=== PATIENT | female | born 2000 | race Caucasian/White ===

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

== ENCOUNTER → 2018-01-07 09:04 | Outpatient (CLI) | payer MEDICAID, SELFPAY ==
[2018-01-07 13:11] LABS: Group B Strep DNA By PCR Negative (Negative); Internal Control PASS; Probe Check PASS; Specimen Processing Control PASS
== END ==
PROVIDERS: Visit Provider Obstetrics & Gynecology
DX: Z36.85 Encounter for antenatal screening for Streptococcus B (principal)
CPT/HCPCS: 87081; 87653

== ENCOUNTER 2018-02-10 16:40 | Inpatient (IN) | payer MEDICAID, SELFPAY ==
--- NOTE | 2018-02-10 16:40 | DT_ITS ---
This patient was seen during an EMR downtime February 08, 2018 - February 15, 2018. This patient may have a combination of paper and electronic documentation or all paper documentation. All documentation is viewable within the e-chart portion of [employer] for each patient visit.
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
[2018-02-13 09:03] LABS: Hematocrit 38.5 % (37-47); Hemoglobin 12.7 g/dl (12.0-15.0); Mean Corpuscular Hgb 27.6 pg (27.0-32.0); Mean Corpuscular Volume 83.7 fL (81-99); Mean Platelet Vol. 11.5 fl (6.2-12.0); Platelet Count 218 K/mm3 (150-450); RBC Distribution Width CV 15.5 % (11.6-14.6); RBC Distribution Width SD 46.7 fl (35.1-43.9); Scan Indicated on CBC? Y/N NO; White Blood Count 11.4 K/mm3 (4.4-11.0)
[2018-02-15 16:12] LABS: Hemoglobin 9.1 g/dl (12.0-15.0); Mean Corp Hgb Conc 32.5 g/gl (32-36); Mean Corpuscular Hgb 27.8 pg (27.0-32.0); Mean Corpuscular Volume 85.6 fL (81-99); Mean Platelet Vol. 11.4 fl (6.2-12.0); Platelet Count 133 K/mm3 (150-450); RBC Distribution Width CV 15.5 % (11.6-14.6); RBC Distribution Width SD 46.8 fl (35.1-43.9); Red Blood Count 3.27 M/mm3 (4.2-5.4); Scan Indicated on CBC? Y/N NO
--- NOTE | 2018-02-17 15:32 | CASEMGMT ---
Social Work Note Labor and Delivery Unit [employer] referral submitted vie secure web based referral form through the [employer] [facility] [employer] [facility] website. No other services requested or indicated. -JOSÉ MANUEL Webster, RECOVERY OPERATOR HELPER
== END 2018-02-13 13:30 | disposition home or self-care (01) | DRG 373 ==
LOC: WPOUT 17:14 → WP 17:15
PROVIDERS: Admitting Provider Obstetrics & Gynecology; Visit Provider Obstetrics & Gynecology
DX: O48.0 Post-term pregnancy (principal); Z3A.40 40 weeks gestation of pregnancy; O77.0 Labor and delivery complicated by meconium in amniotic fluid; O71.82 Other specified trauma to perineum and vulva; O71.4 Obstetric high vaginal laceration alone; Z37.0 Single live birth
CPT/HCPCS: 59025; 59050; 85027; 86850; 86900; 99218; J7120; A4216; G0378

== ENCOUNTER → 2018-06-09 16:34 | Outpatient (CLI) | payer MEDICAID, SELFPAY ==
[2018-06-09 17:47] LABS: Absolute Lymphocyte Count 2.33 X10^3/ul (0.83-4.51); Absolute Neutrophil Count 4.7 X10^3/uL (2.0-7.7); Basophil# 0.04 X10^3/uL; Basophil% 0.5 % (0-1); Eosinophil# 0.21 X10^3/uL; Eosinophils% 2.7 % (0-5); Hemoglobin 12.2 g/dl (12.0-15.0); Lymphocyte # 2.33 X10^3/ul (4.0); Mean Corp Hgb Conc 32.1 g/gl (32-36); Mean Corpuscular Hgb 26.8 pg (27.0-32.0); Mean Corpuscular Volume 83.3 fL (81-99); Mean Platelet Vol. 11.7 fl (6.2-12.0); Monocyte# 0.49 X10^3/uL; Monocyte% 6.3 % (0-10); Neutrophil # 4.68 X10^3/uL (2.7-7.7); Neutrophil % 60.2 % (47-70); Platelet Count 260 K/mm3 (150-450); RBC Distribution Width CV 13.7 % (11.6-14.6); RBC Distribution Width SD 40.7 fl (35.1-43.9); Red Blood Count 4.56 M/mm3 (4.2-5.4); White Blood Count 7.8 K/mm3 (4.4-11.0)
[2018-06-09 17:48] LABS: POSITIVE COUNT NO; POSITIVE DIFFERENTIAL NO; POSITIVE MORPHOLOGY NO
[2018-06-09 17:57] LABS: Vitamin B12 418 pg/mL (211-911)
[2018-06-09 18:06] LABS: Ferritin 7 ng/mL (8-252); Iron 39 ug/dL (50-170); Iron Binding Capacity,Total 490 ug/dL (250-450)
== END ==
PROVIDERS: Family Provider Family Medicine; PCP Family Medicine; Visit Provider Family Medicine
DX: D64.9 Anemia, unspecified (principal)
CPT/HCPCS: 36415; 82607; 82728; 82746; 83540; 83550; 85025

== ENCOUNTER → 2018-07-12 10:30 | Outpatient (CLI) | payer MEDICAID, SELFPAY ==
[2018-07-12 15:29] LABS: Chlamydia Trachomatis by PCR Negative (Negative); Neisserai gonorrhoeae by PCR Negative (Negative); Probe Check PASS; Sample Adequacy Control PASS; Specimen Processing Control PASS
== END ==
PROVIDERS: Visit Provider Obstetrics & Gynecology
DX: Z11.3 Encounter for screening for infections with a predominantly sexual mode of transmission (principal)
CPT/HCPCS: 87491; 87591

== ENCOUNTER → 2018-09-08 16:25 | Outpatient (CLI) | payer MEDICAID, SELFPAY ==
[2018-09-08 18:42] LABS: Ferritin 20 ng/mL (8-252); Iron 42 ug/dL (50-170); Iron Binding Capacity,Total 486 ug/dL (250-450)
[2018-09-08 19:02] LABS: Basophil% 0.3 % (0-1); Eosinophils% 2.6 % (0-5); Hematocrit 36.7 % (37-47); Hemoglobin 12.2 g/dl (12.0-15.0); Lymphocyte # 2.33 X10^3/ul (4.0); Lymphocyte % 30.5 % (19-41); Mean Corp Hgb Conc 33.2 g/gl (32-36); Mean Corpuscular Hgb 27.3 pg (27.0-32.0); Mean Corpuscular Volume 82.1 fL (81-99); Mean Platelet Vol. 12.3 fl (6.2-12.0); Monocyte% 6.6 % (0-10); Neutrophil # 4.56 X10^3/uL (2.7-7.7); Neutrophil % 59.7 % (47-70); POSITIVE COUNT NO; POSITIVE DIFFERENTIAL NO; POSITIVE MORPHOLOGY NO; Platelet Count 242 K/mm3 (150-450); RBC Distribution Width SD 44.7 fl (35.1-43.9); Red Blood Count 4.47 M/mm3 (4.2-5.4); White Blood Count 7.6 K/mm3 (4.4-11.0)
[2018-09-08 19:03] LABS: Absolute Lymphocyte Count 2.33 X10^3/ul (0.83-4.51); Absolute Neutrophil Count 4.6 X10^3/uL (2.0-7.7); Basophil# 0.02 X10^3/uL
== END ==
PROVIDERS: Family Provider Family Medicine; PCP Family Medicine; Visit Provider Family Medicine
DX: E61.1 Iron deficiency (principal)
CPT/HCPCS: 36415; 82728; 83540; 83550; 85025

== ENCOUNTER → 2020-07-06 | Outpatient (CLI) | payer MEDICAID, SELFPAY | END | disposition home or self-care (01) | LOC: LABSPEC 17:50 | PROVIDERS: PCP Family Medicine; Referring Provider Advanced Practice Midwife; Visit Provider Advanced Practice Midwife | DX: Z20.828 Contact with and (suspected) exposure to other viral communicable diseases (principal) | CPT/HCPCS: 87635; C9803; U0003 ==

== ENCOUNTER 2020-07-12 15:58 | Inpatient (IN) | payer MEDICAID, SELFPAY ==
[2020-07-12] VITALS (20 sets, daily range): BP systolic 80–126; BP diastolic 52–78; PULSE 64–91; TEMP 36.9–37.4; O2SAT 83–100; BMI 22.2
[2020-07-12] MEDS: Lactated Ringers 1,000 ML 50 ML IV (16:25)
[2020-07-12 16:43] LABS: Absolute Lymphocyte Count 1.71 X10^3/uL (0.83-4.51); Basophil# 0.03 X10^3/uL; Basophil% 0.4 % (0-1); Eosinophil# 0.12 X10^3/uL; Eosinophils% 1.4 % (0-5); Hematocrit 34.3 % (37-47); Hemoglobin 11.1 g/dL (12.0-15.0); Lymphocyte # 1.71 X10^3/ul (4.0); Mean Corp Hgb Conc 32.4 g/dL (32-36); Mean Corpuscular Hgb 27.6 pg (27.0-32.0); Mean Corpuscular Volume 85.3 fL (81-99); Mean Platelet Vol. 10.8 fl (6.2-12.0); Monocyte# 0.59 X10^3/uL; Monocyte% 6.9 % (0-10); NRBC Flagged by Analyzer 0 % (0-5); Neutrophil # 6.04 X10^3/uL (2.7-7.7); Neutrophil % 70.4 % (47-70); Platelet Count 190 K/mm3 (150-450); RBC Distribution Width CV 14.1 % (11.6-14.6); RBC Distribution Width SD 44.1 fl (35.1-43.9); Red Blood Count 4.02 M/mm3 (4.2-5.4); White Blood Count 8.6 K/mm3 (4.4-11.0)
[2020-07-12] MEDS: Oxytocin 30 units/NS 500 ml 30 UNITS/500 ML IV.SOLN IV (18:05)
[2020-07-12] MEDS: 0.9% Normal Saline Single 100 ML IV.SOLN. IY (18:32)
--- NOTE | 2020-07-12 19:18 | PCM.HP.OB ---
- Problem List (1) 39 weeks gestation of Status: Acute (2) History of marijuana use Status: Acute History Date of Admission: 07/12/20 Final GIANA: 07/18/20 Gestational age: 39 Weeks and 1 Days History of this : This is a 19 year-old, G [2], P [1], at 39.1 weeks gestational age here for elective induction. Patient's father in law has cancer and is receiving chemotherapy. They watch patient's 2 year old and needed a scheduled date for delivery. has been uncomplicated. Patient has a history of marijuana use early in the . Allergies codeine Allergy (Verified 07/12/20 16:24) Unknown Home Medications: Home Medications Vits [Prenatabs FA] 1 tab PO DAILY 07/12/20 Smoking Status: Never smoker Substance Use Type: Marijuana Number of Fetus(es): 1 NST - FHR Rate Baby A Baseline: 150 Variability:: Moderate Accelerations:: 15 x 15 Decelerations:: None NST Reactive:: Yes FHR Category:: Category I Uterine Activity:: TOCO reading 1-3 minutes. Palpate mild and relaxed in between History Past Pregnancies: Past Pregnancies Delivery Date Name GA/ Weeks Outcome Route Wt Sex Labor Length Anesthesia Delivery Location Provider FOB Labs: A+ Rubella- immune HB -negative HC - negative RPR- NR HIV- NR GC/CH- neg GBS negative COVID- 19- negative LARC- patient desires Nexplanon prior to discharge home Expected Infant Delivery Method: Spontaneous Vaginal Review of Systems Constitutional: Denies: Chills, Fever Cardiovascular: Denies: Chest Pain Respiratory: Denies: Cough, Shortness of Breath Gastrointestinal: Denies: Abdominal Pain Genitourinary: Denies: Dysuria Neurological: Denies: Headaches Physical Exam Vitals: Vital Signs Temp Pulse BP Pulse Ox 98.5 F 76 111/69 99 07/12/20 19:13 07/12/20 19:13 07/12/20 19:13 07/12/20 16:36 General: Alert, Oriented x3 Cardiovascular: Regular rate Lungs: Normal air movement Abdomen: Soft, Non Tender, Gravid Neurological: Cranial nerves II-XII grossly intact SR COMMUNITY MANAGER: Normal external genitalia Estimated gestational size: Appropriate for gestational size Cervix Dilation (cm): 1.5 Station: -1 Effacement (%): 60 Assessment/Plan All Active Problems 39 weeks gestation of (Acute) History of marijuana use (Acute) This is a 19 year-old, G [2], P [1], at 39.1 weeks gestational age for induction of labor for maternal reasons. A/P Category 1 tracing Admit to labor and delivery Routine labs IV fluids per protocol CE- 1.5/60/-1 Cuenca bulb catheter placed and filled with 30 cc of NS Start Pitocin IV and titrate per orders Pain medications when indicated Anticipate Dr. Foy notified of admission and is collaborating physician
[2020-07-12 21:05] LABS: Amphetamine Urine VISTA NEGATIVE (<1000 ng/mL); Barbiturate Urine VISTA NEGATIVE (< 200 ng/mL); Benzodiazepine Urine VISTA NEGATIVE (< 200 ng/mL); Cocaine Urine VISTA NEGATIVE (< 300 ng/mL); Ecstacy Urine VISTA NEGATIVE (< 500 ng/mL); Methadone Urine VISTA NEGATIVE (< 300 ng/mL); PCP Urine VISTA NEGATIVE (< 25 ng/mL); THC Urine VISTA NEGATIVE (< 50 ng/mL); Vista UDS pH Range 6
[2020-07-12] MEDS: Lactated Ringers 500 ML 999 ML IV ×2 (23:03→23:55)
[2020-07-13] VITALS (49 sets, daily range): BP systolic 82–127; BP diastolic 46–90; PULSE 61–120; RESP 14–18; TEMP 36.7–37.2; O2SAT 83–100
[2020-07-13] MEDS: Lactated Ringers 500 ML 999 ML IV ×2 (00:25→06:52)
--- NOTE | 2020-07-13 00:38 | PCM.PN.BLA ---
Progress Note Patient resting. Comfortable with epidural. Cuenca bulb out CE- 4/70/-1 Pitocin 6 mu/min Continue present management Anticipate Dr. Foy updated STROKE Vital Signs/Narrative: Vital Signs Temp Pulse BP Pulse Ox 07/13/20 00:37 69 83 07/13/20 00:35 73 100 07/13/20 00:30 61 100 07/13/20 00:29 71 109/54 L 07/13/20 00:25 86 100 07/13/20 00:23 98.1 F 80 83/48 L 07/13/20 00:20 76 100 07/13/20 00:18 71 92/49 L 07/13/20 00:15 81 100 07/13/20 00:12 82 95/51 L 07/13/20 00:10 81 97 07/13/20 00:08 88 116/85 H 07/13/20 00:05 80 100 07/13/20 00:03 81 126/69 H 07/13/20 00:00 79 95 07/12/20 23:57 76 116/68 07/12/20 23:56 65 106/65 07/12/20 23:55 69 91 07/12/20 23:54 76 80/52 L 07/12/20 23:50 78 100 07/12/20 23:48 77 120/78 07/12/20 23:45 76 100 07/12/20 23:44 80 120/75 07/12/20 23:43 91 07/12/20 23:40 75 125/66 H 100 07/12/20 23:35 82 100 07/12/20 23:16 98.4 F 78 111/76 99 07/12/20 22:22 99.0 F 67 126/78 H 100 07/12/20 21:29 99.1 F 67 123/77 H 100
[2020-07-13] MEDS: Lactated Ringers 1,000 ML 200 ML IV ×2 (00:40→05:49)
[2020-07-13] MEDS: Ondansetron 4 MG/2 ML Vial IV (00:51)
[2020-07-13] MEDS: Mag Hydrox/Al Hydrox/Simeth 30 ML UDC PO (03:11)
[2020-07-13] MEDS: fentaNYL-bupivacaine (epidural) 100 ML BAG EPIDURAL ×2 (04:28)
[2020-07-13] MEDS: Amnioinfusion- 0.9% NS 1,000 ML IV.SOLN. 300 ML INTRA-UTER (07:23)
[2020-07-13] MEDS: Oxytocin 30 units/NS 500 ml 30 UNITS/500 ML IV.SOLN 334 UNITS IV (08:20)
--- NOTE | 2020-07-13 08:34 | PCM.OPRPT ---
Problem List (1) 39 weeks gestation of Status: Acute (2) History of marijuana use Status: Acute Report of Operation Date of Procedure: 07/13/20 Vaginal Delivery Maternal Presentation: Elective Induction Patient is a 19 year old at 39.2 weeks gestation for elective induction of labor. Patient's father in law is going through chemotherapy and they watch the patient's other child. The family needed to have a scheduled date for induction. Method of Induction: Pitocin, Cuenca Bulb Amniotic Membrane Rupture Type: Spontaneous Amniotic Fluid Description: Clear Final GIANA: 07/18/20 Gestational age: 39 Weeks and 2 Days [place] doctor who attended delivery (if requested by OB): Pamella Alexandre Date of Procedure: 07/13/20 Pre-Operative Diagnosis: Term gestation, Elective induction of labor Post-Operative Diagnosis: same, live female infant Surgery/ Procedure Performed: Spontaneous Vaginal Delivery Type of Anesthesia: Epidural Description of Procedure: Patient progressed to 7 cm. Called to patient's room for category 2 tracing with variable decelerations and a prolonged late. Dr. Foy called to unit and patient transferred to OR. heart tones recovered while back in OR. CE completed and patient found to be complete dilation and [address] Foy at bedside. Began pushing while in OR. With minimal maternal effort, delivery of infant head completed. Nuchal cord x2 around neck and unable to reduce. Anterior shoulder, posterior and remainder of delivered in somersault fashion. Delivery at 0818. Cord clamped and cut immediately and infant handed off to awaiting nursery staff. Cord gases obtained and sent. Pitocin IV started for active management of the third stage. Placenta delivered spontaneously and intact. Three vessel cord. After inspection, vagina and perineum intact. Vaginal sweep was completed by me. Fundus firm 1 below U. Hemostasis obtained. EBL-200 cc. APGARS 7/9 Presentation: Vertex Placental Delivery Description: Spontaneous Placenta Disposition: [facility] Cord Vessel Description: 3 Vessels Nuchal Cord Compression: Without compression Cord Gases drawn per routine: ABG, VBG Cord Entanglement: Around neck x 2, tight Estimated Blood Loss: 200 Infant A gender: Female (1 minute): 7 (5 minute): 9 Episiotomy Description: None Laceration: None Medications given after delivery: IV Pitocin Complications: None Baby B - Information Amniotic Membrane Rupture Type: Spontaneous
[2020-07-13] MEDS: Acetaminophen 500 MG Tablet 1000 MG PO (18:59)
[2020-07-13] MEDS: Ibuprofen 600 MG Tablet PO (22:20)
[2020-07-14 02:58] VITALS: BP 101/52; PULSE 76; RESP 16; TEMP 37.3
[2020-07-14] MEDS: Etonogestrel 68 MG IMPLANT SQ (05:32)
--- NOTE | 2020-07-14 06:00 | PCM.PN.OB ---
Patient Problems: Active and Suspected Problems 39 weeks gestation of (Acute) History of marijuana use (Acute) Subjective: Doing well per patient and nursing staff. Ambulating and taking PO without difficulty. Pain controlled. Denies headache, visual changes, chest pain, shortness of breath or increased bleeding. Planning D/C home today. Would like Nexplanon insertion. - Physical Exam Vitals/I&O's: Vital Signs Temp Pulse Resp BP Pulse Ox 99.1 F 76 16 101/52 L 100 07/14/20 02:58 07/14/20 02:58 07/14/20 02:58 07/14/20 02:58 07/13/20 16:16 Oxygen Delivery Method Room Air Weight: 138 lb Body Mass Index (BMI) 22.2 Intake and Output for Last 24 Hours 07/12/20 07/13/20 07/14/20 23:59 23:59 23:59 Intake Total 887.87 / 887.87 4625.06 / 4625.06 Output Total 2350 / 2350 Balance 887.87 / 887.87 2275.06 / 2275.06 General: Alert, Oriented x3, Cooperative HEENT: Atraumatic, Normocephalic Neck: Trachea Midline Lungs: Clear to auscultation, Normal air movement, No rhonchi, No wheeze Cardiovascular: Regular rate, Regular Rhythm Abdomen: Bowel Sounds Present, Soft - fundus firm 2 below U Extremities: No edema Psych/Mental Status: Normal Affect, Appropriate Current Medications Acetaminophen (Acetaminophen 500 Mg Tablet) 1,000 mg PO Q8H PRN PRN PRN Reason: Pain Score 1-10 Last Admin: 07/13/20 18:59 Dose: 1,000 mg Documented by: Bisacodyl (Bisacodyl 10 Mg Suppository) 10 mg RECTAL UD PRN PRN Reason: If no BM Dibucaine (Dibucaine 30 Gm Tube) 1 applic TOPICAL TID PRN PRN; Protocol PRN Reason: Discomfort Hydrocortisone (Hydrocortisone 2.5% Crm) 1 applic TOPICAL TID PRN PRN; Protocol PRN Reason: Discomfort Ibuprofen (Ibuprofen 600 Mg Tablet) 600 mg PO Q6H PRN PRN PRN Reason: Pain Score 1-10 Last Admin: 07/13/20 22:20 Dose: 600 mg Documented by: Methylergonovine Maleate (Methylergonovine 0.2 Mg/Ml Ampul) 0.2 mg IM X1 PRN PRN Reason: Excess bleeding/uterine atony Ondansetron HCl (Ondansetron 4 Mg/2 Ml Vial) 4 mg IV Q4H PRN PRN PRN Reason: Nausea Senna/Docusate Sodium (Senna/Docusate Sodium 1 Tablet) 1 - 2 tablet PO DAILY PRN PRN PRN Reason: Constipation Simethicone (Simethicone 80 Mg Tablet) 80 mg PO PCHS PRN PRN Reason: Indigestion/Stomach pain Sodium Chloride (0.9% Saline Lock 10 Ml Syringe) 5 - 15 ml IV UD PRN PRN Reason: SALINE FLUSH Medical Necessity - Tobacco Use Smoking Status: Never smoker Assessment/Plan All Active Problems 39 weeks gestation of (Acute) History of marijuana use (Acute) A:PPD #1 Nexplanon Insertion P: 1) Routine care and instructions 2) Reviewed LARC and would like Nexplanon. Reviewed risks, benefits, MOA, and insertion. Consent form signed. 3) Discharge home today Nexplanon Note: Left handed. Right arm raised above head, betadine used to cleanse site of upper right arm. Lidocaine 1% instilled. Nexplanon inserted without difficulty. Steri strips applied and pressure dressing. Patient tolerated well.
--- NOTE | 2020-07-14 06:06 | DCINST_ITS ---
Discharge Diet: No Restrictions Discharge Activity: Return to Normal Activity, May not drive while taking narcotic pain medications., May Shower May resume sexual activity in: 4-6 weeks Weight Bearing Status: Full weight bearing Additional Activity Instructions:: Nothing in the vagina for 4-6 weeks. You may return to work/school in 6 weeks. Call your doctor if your incision/area has: Continuous Slow Oozing, Sudden Increased Bleeding, Increased Pain/ Swelling, Increased Redness, Foul Smelling Discharge Additional Instructions: If you experience any of the following, contact your healthcare provider. * Bleeding that soaks a pad every hour for 2 hours * Fever 100.4 or higher * Unrelieved incision or abdominal pain * Swelling, redness, discharge or bleeding from your incision or epis iotomy site * Your incision begins to separate * Problems urinating (including inability to urinate or burning while urinating). * Visual changes * Severe headache * Flu-like symptoms * Pain or redness in one of both of your breasts * Pain, warmth, tenderness or swelling in your legs, especially the calf area * Frequent nausea and vomiting * Symptoms of depression or anxiety If you experience any of the following, call 911 or go to the nearest Emergency Room. * Chest pain * Problems breathing * Seizure activity * Partial or complete paralysis of a body part, slurred speech, weakness or drooping of the face, or a sudden inability to walk or hold your balance Allergies/Adverse Reactions: Allergies codeine Allergy (Verified 07/12/20 16:24) Unknown Medications to take at Discharge Vits [Prenatabs FA ] 1 tab PO DAILY 07/12/20 Ibuprofen [Motrin] 600 mg PO Q6H PRN PRN tablet 07/14/20 Please Follow Up With: Kasie Hernandez CNM When: Call to make an appointment with your doctor in 2 weeks and 6 weeks. If you had elevated Blood Pressure or 4th degree laceration you will need to be seen in 2 weeks. Primary Care Physician: Tk Jones MD [Primary Care Provider] - Test Results: Test results from this visit will be discussed in further detail at your follow- up appointment, if applicable.
[2020-07-14 08:45] VITALS: BP 113/73; PULSE 79; RESP 16; TEMP 37; O2SAT 99
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
[2020-07-14 14:30] VITALS: BP 112/69; PULSE 90; RESP 16; TEMP 37.1; O2SAT 99
== END 2020-07-14 16:00 | disposition home or self-care (01) | DRG 560 ==
PROVIDERS: Admitting Provider Advanced Practice Midwife; PCP Family Medicine; Visit Provider Advanced Practice Midwife
DX: O76 Abnormality in fetal heart rate and rhythm complicating labor and delivery (principal); O69.1XX0 Labor and delivery complicated by cord around neck, with compression, not applicable or unspecified; O99.324 Drug use complicating childbirth; F12.90 Cannabis use, unspecified, uncomplicated; Z3A.39 39 weeks gestation of pregnancy; Z37.0 Single live birth; Z30.017 Encounter for initial prescription of implantable subdermal contraceptive
CPT/HCPCS: 59025; 59050; 80307; 85025; 86850; 86900; 86901; 99218; J7030; J7120; G0378; J2405